=== PATIENT | male | born 1970 | race Caucasian/White ===

== ENCOUNTER 2017-04-04 17:14 | Inpatient (IN) | payer OTHER ==
[~2017-04-04] VITALS: Ht 177.8 cm; Wt 103.0 kg
[~2017-04-04 17:14] MED LIST: ACETAMINOPHEN 325 MG TAB PO PRN; ATOR40TA16 PO; BISACODYL 10 MG SUPP RECTAL PRN; GLIP5TAB8 PO; JANU50TA8 PO; LACTULOSE SYRUP 20 GM/30 ML CUP PO PRN; LISI10TA3 PO; MAGNESIUM HYDROXIDE SUSP 30 ML CUP PO PRN; NALOXONE HCL 0.4 MG/ML AMP IV PRN; ONDANSETRON HCL 4 MG/2 ML VIAL IVP PRN; SENNOSIDES 8.6 MG TAB PO PRN; SODIUM CHLORIDE 0.9% FLUSH 10 ML FLUSH IV FLUSH PRN; ZOLPIDEM TARTRATE 5 MG TAB PO PRN
[2017-04-04] MEDS ORDERED: SODIUM CHLOR 0.9% 1000 ML INJ 1,000 ML IV SCH (18:00)
[2017-04-04] MEDS: PIPERACIL-TAZO 4.5 GM PREMIX 100 ML IV SCH ×2 (18:32→22:55)
[2017-04-04] MEDS: HYDROmorphone HCL PF 1 MG/ML VIAL IV PRN (18:42)
[2017-04-04] MEDS ORDERED: GLUCAGON 1 MG/ML VIAL OTHER PRN (19:15)
[2017-04-04] MEDS ORDERED: DEXTROSE 50% IN WATER 50 ML VIAL(D50) IV PRN (19:15)
[2017-04-04 20:00] VITALS: BP 138/75; PULSE 56; RESP 17; TEMP 97.5; O2SAT 96
--- NOTE | 2017-04-04 20:16 | RADRPT ---
EXAM DATE/TIME: 04/04/2017 19:39 [facility] COMPARISON: No previous studies available for comparison. INDICATIONS : Pain. Epigastric pain radiating to back MEDICAL HISTORY : Hypertension. Diabetes mellitus type 2. SURGICAL HISTORY : None. ENCOUNTER: Initial ACUITY: 1 day PAIN SCORE: 5/10 LOCATION: Upper abdomen TECHNIQUE: Multiplanar, multisequence magnetic resonance imaging of the abdomen was performed. High-resolution 3D dataset was utilized to reconstruct maximum-intensity projection (MIP) images. FINDINGS: INTRAHEPATIC BILE DUCTS: Within normal limits. No significant anatomical variant is present. EXTRAHEPATIC BILE DUCTS: The common bile duct measures 3 mm. No stone or filling defect is identified. GALLBLADDER: No stones, wall thickening, or pericholecystic fluid. LIVER: Normal size and signal intensity. 2 T2 hyperintense well-circumscribed lesions are identified in the liver located in segments 6 and 8. They measure 12.6 and 14.1 mm in size respectively. PANCREAS: The main pancreatic duct is normal in size. There is no significant anatomical variant. Signal inte nsity is within normal limits. No mass is visualized on this non-contrast exam. OTHER: The remaining visualized structures demonstrate no acute abnormality on this non-contrast exam. CONCLUSION: 1. No evidence of biliary obstructive disease, cholelithiasis or acute inflammatory changes. 2. T2 hyperintense hepatic lesions characteristic of cysts or hemangiomas. 3. Otherwise normal exam. Alexandro Key MD on April 04, 2017 at 20:08 Board Certified Radiologist. This report was verified electronically.
--- NOTE | 2017-04-04 20:18 | MB ---
cc: BRIANDA FISCHER M.D. DATE OF CONSULTATION 04/04/[address] Garcia REASON FOR CONSULTATION Abdominal pain, pancreatitis HISTORY OF PRESENT ILLNESS Mr. Disla is a very pleasant 47-year-old gentleman who came to the emergency room with complaints of pain in the epigastrium radiating to the back and right upper quadrant since . The patient had some back pain related to his sciatica in the past , felt to it could be related to that. The patient got worse, pain was mostly in the right upper quadrant and in the epigastrium coming and going, getting worse for the last couple of hours. He did have some nausea and some vomiting. He did have some chills and fever. Based on the above, he decided to come to the emergency room. He denies any weight loss, constipation, diarrhea, history of gallstones. Denies any weight loss, dysphagia, odynophagia. He does drink three to four beers a week. He used to drink heavy alcohol in the past but not recently. He does have diabetes and apparently that is under control. No new medication started recently. PAST MEDICAL HISTORY 1. High blood pressure 2. High cholesterol 3. Diabetes. PAST SURGICAL HISTORY Tooth extraction SOCIAL HISTORY Drinks beer as described, denies any smoking. ALLERGIES MORPHINE MEDICATIONS 1. Metformin 2. Lisinopril 3. Atorvastatin 4. Glipizide. REVIEW OF SYSTEMS He did have some fever and chills. No weight loss or weight gain. ENT: No alteration in baseline hearing or visual acuity PULMONARY: Denies any chest pain, shortness of breath. GASTROINTESTINAL: As above. GENITOURINARY: Denies dysuria, hematuria. HEMATOLOGIC: Denies any history of anemia or bleeding disorder. SKIN: No alteration in baseline skin lesion. NEUROLOGIC: No history of TIA or CVA kind of symptoms. PHYSICAL EXAMINATION GENERAL: On clinical exam, he is sitting comfortably in bed in no acute distress. VITAL SIGNS: Pulse is 71, respirations 16, blood pressure 155/74, saturation 98 HEENT: PERRLA. NECK: No JVD. No lymphadenopathy. CHEST: Clear to the patient and palpation. CARDIOVASCULAR: S1, S2. No murmur. ABDOMEN: Obese. Bowel sounds are present. INFORMATICA DEVELOPER: Awake, alert, oriented x3. No focal signs identified. LABORATORY DATA White count 13.8, hemoglobin 15.9, platelets 269. Chemistry suggestive of bilirubin 1.5, AST, ALT normal. Lipase 706. IMAGING STUDIES The patient had a CT abdomen and pelvis which was essentially negative. IMPRESSION Abdominal pain, nausea, mild elevation of the total bilirubin and lipase. Possible passed gallstone or CBD stone versus peptic ulcer disease. RECOMMENDATIONS Repeat liver enzymes in the morning. MRCP. HIDA scan. Further recommendation will depend on the patient's clinical status and the above results. If any indication of common bile duct stone, the patient would benefit from ERCP. Continue current medication. I would like to thank, Dr. Garcia, for referring him to our office for consultation. Brianda Fischer MD BSB/SA /7:35 PM /7:58 PM MG
[2017-04-04] MEDS: ATORVASTATIN 40 MG TAB PO SCH (21:00)
[2017-04-04] MEDS: SODIUM CHLORIDE 0.9% FLUSH 10 ML FLUSH IV FLUSH SCH (21:00)
[2017-04-04] MEDS: INSULIN ASPART SUPPLEMENTAL SCALE SQ SCH (21:00)
[2017-04-04] MEDS: DOCUSATE SODIUM 50 MG/SENNA 8.6 MG TAB PO SCH (21:00)
--- NOTE | 2017-04-04 23:48 | HHI.HP ---
[facility] Service [facility] Primary Care Physician Unknown Admission Diagnosis Pancreatitis . Diagnoses: (1) Pancreatitis (2) Type 2 diabetes mellitus (3) Hypertension (4) Hyperlipidemia Chief Complaint: Back and epigastric pain Travel History International Travel<30 Days: No Contact w/Intl Traveler <30 Da: No History of Present Illness The patient is seen in the presence of his and interviewed in her presence with the patient's permission. The patient is a 47 y/o male with a history of upper lipidemia, hypertension, and type 2 diabetes mellitus who presented to the emergency room and [place] complaining of epigastric pain and back pain since 04/02/2017. The patient states that on March, he was experiencing severe right upper quadrant back pain that he related to nerve impingement. He states he's had pains like these before and they last for about a week before spontaneously resolving. He had a submarine sandwich and, suddenly, the pain from his back started radiating in a bandlike distribution around to the epigastrium. The pain was severe and difficult to describe. He was able to alleviate the pain temporarily with a heating pad in the right upper quadrant of his back while sitting in a lounge chair. However, as soon as he would lay down, the pain in the back and radiating around to the epigastrium would return. The pain was so severe that he decided to seek medical attention. He had some associated nausea this morning without vomiting and intermittent diaphoresis. He denies any associated shortness of breath or diarrhea. He denies any associated fever, chills, shortness of breath, chest pain, nausea, vomiting, diarrhea, hematuria, dysuria, or bloody or black stools. He states that he was started on glipizide about 90 days ago. That is the only new medication he has started. Review of Systems Except as stated in HPI: all other systems reviewed are Neg Past Family Social History Past Medical History Hyperlipidemia Type 2 diabetes mellitus Neuropathic back pain, intermittent Renal failure secondary to dehydration, resolved Denies hypertension, CAD, CHF, atrial fibrillation, COPD, emphysema, asthma, liver disease, hepatitis, cancers, thyroid disease, seizures, DVTs, PEs, or CVAs , . Past Surgical History Oral surgery for tooth extraction . Reported Medications Last Impressions Cholangiopancreatography MRI 04/04/17 0000 Signed Impressions: Service Date/Time: Tuesday, April 04, 2017 19:39 - CONCLUSION: 1. No evidence of biliary obstructive disease, cholelithiasis or acute inflammatory changes. 2. T2 hyperintense hepatic lesions characteristic of cysts or hemangiomas. 3. Otherwise normal exam. Alexandro Key MD . Allergies: Coded Allergies: morphine (Verified Allergy, Severe, Respiratory Failure, 04/04/17) Active Ordered Medications Current Medications Sodium Chloride 1,000 ml @ 100 mls/hr Q10H IV Last administered on 04/04/17t 18 :00; Start 04/04/17 at 18:00; Stop 04/05/17 at 00:32; Status DC Sodium Chloride (NS Flush) 2 ml UNSCH PRN IV FLUSH FLUSH AFTER USING IV ACCESS ; Start 04/04/17 at 13:45 Sodium Chloride (NS Flush) 2 ml BID IV FLUSH ; Start 04/04/17 at 21:00 Acetaminophen (Tylenol) 650 mg Q4H PRN PO TEMP > 100.4; Start 04/04/17 at 13:45 Ondansetron HCl (Zofran Inj) 4 mg Q6H PRN IVP NAUSEA OR VOMITING; Start at 13:45 Zolpidem Tartrate (Ambien) 5 mg HS PRN PO INSOMNIA; Start 04/04/17 at 13:45 Naloxone HCl (Narcan Inj) 0.4 mg UNSCH PRN IV SEE LABEL COMMENTS; Start at 13:45 Senna/Docusate Sodium (Pamela-Colace) 1 tab BID PO ; Start 04/04/17 at 21:00 Magnesium Hydroxide (Milk Of Magnesia Liq) 30 ml Q12H PRN PO MILD - MODERATE CONSTIPATION; Start 04/04/17 at 13:45 Sennosides (Senokot) 17.2 mg Q12H PRN PO MODERATE - SEVERE CONSTIPATION; Start 04/04/17 at 13:45 Bisacodyl (Dulcolax Supp) 10 mg DAILY PRN RECTAL SEVERE CONSITIPATION; Start at 13:45 Lactulose (Lactulose Liq) 30 ml DAILY PRN PO SEVERE CONSITIPATION; Start at 13:45 Piperacillin Sod/ Tazobactam Sod 100 ml @ 200 mls/hr Q6H IV Last administered on 04/04/17t 22:55; Start 04/04/17 at 18:00 Hydromorphone HCl (Dilaudid Pf Inj) 1 mg Q3H PRN IV PAIN SCALE 1 TO 10 Last administered on 04/05/17 00:08; Start 04/04/17 at 13:45 Dextrose (D50w (Vial) Inj) 50 ml UNSCH PRN IV HYPOGLYCEMIA-SEE COMMENTS; Start 04/04/17 at 19:15 Glucagon (Glucagon Inj) 1 mg UNSCH PRN OTHER HYPOGLYCEMIA-SEE COMMENTS; Start 04/04/17 at 19:15 Insulin Aspart (NovoLOG SUPPLEMENTAL SCALE) 1 ACHS SLIDING SCALE SQ ; Start 04/04/17 at 21:00 Atorvastatin Calcium (Lipitor) 40 mg HS PO ; Start 04/04/17 at 21:00 Lisinopril (Prinivil) 10 mg DAILY PO ; Start 04/05/17 at 09:00 Nicotine (Habitrol 7 Mg Patch.24 Hr) 1 patch DAILY T-DERMAL ; Start 04/05/17 at 09:00 Miscellaneous Information 1 DAILY T-DERMAL ; Start 04/05/17 at 09:00 Dextrose/Sodium Chloride 1,000 ml @ 100 mls/hr Q10H IV ; Start 04/05/17 at 00: 30 . Family History Father age 67; pulmonary fibrosis, COPD, hypertension, hyperlipidemia, Type 2 DM, coronary artery disease - stents placed age 60 Mother alive and with diabetes mellitus and thyroid disease . Social History Tobacco: Chews tobacco, quit smoking about 10 years ago, smoked for 20 years about 1 pack per day Alcohol: Former heavy alcohol use; now just drinks 4-5 beers per week at most . Physical Exam Vital Signs Vital Signs Date Time Temp Pulse Resp B/P (MAP) Pulse Ox O2 Delivery O2 Flow Rate FiO2 04/04/17 20:00 97.5 56 17 138/75 (96) 96 Physical Exam GENERAL: This is a pleasant male patient, in no apparent distress. SKIN: No rashes, ecchymoses or lesions. Cool and dry. HEAD: Atraumatic. Normocephalic. EYES: No scleral icterus. No injection or drainage. ENT: Nose without bleeding, purulent drainage. NECK: Trachea midline. No JVD. CARDIOVASCULAR: Regular rate and rhythm without murmurs, gallops, or rubs. RESPIRATORY: Clear to auscultation. Breath sounds equal bilaterally. No wheezes , rales, or rhonchi. GASTROINTESTINAL: Abdomen soft, epigastric pain with palpation, nondistended. No guarding. MUSCULOSKELETAL: Extremities without clubbing, cyanosis, or edema. No calf tenderness. Right paraspinal muscle tenderness with palpation in the area of around T3/T4. NEUROLOGICAL: Awake and alert. Motor and sensory grossly within normal limits. Normal speech. . Laboratory Laboratory Tests Test 04/04/17 11:26 White Blood Count 13.8 TH/MM3 Red Blood Count 5.11 MIL/MM3 Hemoglobin 15.9 GM/DL Hematocrit 45.7 % Mean Corpuscular Volume 89.4 FL Mean Corpuscular Hemoglobin 31.1 PG Mean Corpuscular Hemoglobin Concent 34.8 % Red Cell Distribution Width 12.1 % Platelet Count 269 TH/MM3 Mean Platelet Volume 10.1 FL Neutrophils (%) (Auto) 61.3 % Lymphocytes (%) (Auto) 26.4 % Monocytes (%) (Auto) 11.1 % Eosinophils (%) (Auto) 0.7 % Basophils (%) (Auto) 0.2 % Neutrophils # (Auto) 8.5 TH/MM3 Lymphocytes # (Auto) 3.6 TH/MM3 Monocytes # (Auto) 1.5 TH/MM3 Eosinophils # (Auto) 0.1 TH/MM3 Basophils # (Auto) 0.0 TH/MM3 CBC Comment DIFF FINAL Differential Comment Prothrombin Time 10.0 SEC Prothromb Time International Ratio 1.0 RATIO Activated Partial Thromboplast Time 27.6 SEC Blood Urea Nitrogen 11 MG/DL Creatinine 1.00 MG/DL Random Glucose 192 MG/DL Total Protein 7.5 GM/DL Albumin 3.9 GM/DL Calcium Level 9.3 MG/DL Alkaline Phosphatase 104 U/L Aspartate Amino Transf (AST/SGOT) 17 U/L Alanine Aminotransferase (ALT/SGPT) 36 U/L Total Bilirubin 1.5 MG/DL Sodium Level 136 MEQ/L Potassium Level 4.4 MEQ/L Chloride Level 101 MEQ/L Carbon Dioxide Level 25.0 MEQ/L Anion Gap 10 MEQ/L Estimat Glomerular Filtration Rate 79 ML/MIN Troponin I LESS THAN 0.02 NG/ML Lipase 706 U/L Imaging Last Impressions Abdomen/Pelvis CT 04/04/17 0000 Signed Impressions: Service Date/Time: Tuesday, April 04, 2017 11:50 - CONCLUSION: No acute finding is identified. There is no abnormality identified to explain the clinical symptoms. Jhonny Gutierrez MD Cholangiopancreatography MRI 04/04/17 0000 Signed Impressions: Service Date/Time: Tuesday, April 04, 2017 19:39 - CONCLUSION: 1. No evidence of biliary obstructive disease, cholelithiasis or acute inflammatory changes. 2. T2 hyperintense hepatic lesions characteristic of cysts or hemangiomas. 3. Otherwise normal exam. MD Saira Montes De Oca VTE Risk Assessment Saira VTE Risk Assessment: Mod/High Risk (score >= 2) Caprini Risk Assessment Model Point Value = 1 Point Value = 2 Point Value = 3 Point Value = 5 Age 41-60 Minor surgery BMI > 25 kg/m2 Swollen legs Varicose veins or History of unexplained or recurrent spontaneous Oral contraceptives or hormone replacement Sepsis (< 1 month) Serious lung disease, including pneumonia (< 1 month) Abnormal pulmonary function Acute myocardial infarction Congestive heart failure (< 1 month) History of inflammatory bowel disease Medical patient at bed rest Age 61-74 Arthroscopic surgery Major open surgery (> 45 min) Laparoscopic surgery (> 45 min) Malignancy Confined to bed (> 72 hours) Immobilizing plaster cast Central venous access Age >= 75 History of VTE Family history of VTE Factor V Leiden Prothrombin [id number] Lupus anticoagulant Anticardiolipin antibodies Elevated serum homocysteine Heparin-induced thrombocytopenia Other congenital or acquired thrombophilia Stroke (< 1 month) Elective arthroplasty Hip, pelvis, or leg fracture Acute spinal cord injury (< 1 month) Prophylaxis Regimen Total Risk Factor Score Risk Level Prophylaxis Regimen 0-1 Low Early ambulation 2 Moderate Order ONE of the following: *Sequential Compression Device (SCD) *Heparin 5000 units SQ BID 3-4 Higher Order ONE of the following medications: *Heparin 5000 units SQ TID *Enoxaparin/Lovenox 40 mg SQ daily (WT < 150 kg, CrCl > 30 mL/min) *Enoxaparin/Lovenox 30 mg SQ daily (WT < 150 kg, CrCl > 10-29 mL/min) *Enoxaparin/Lovenox 30 mg SQ BID (WT < 150 kg, CrCl > 30 mL/min) AND/OR *Sequential Compression Device (SCD) 5 or more Highest Order ONE of the following medications: *Heparin 5000 units SQ TID (Preferred with Epidurals) *Enoxaparin/Lovenox 40 mg SQ daily (WT < 150 kg, CrCl > 30 mL/min) *Enoxaparin/Lovenox 30 mg SQ daily (WT < 150 kg, CrCl > 10-29 mL/min) *Enoxaparin/Lovenox 30 mg SQ BID (WT < 150 kg, CrCl > 30 mL/min) AND *Sequential Compression Device (SCD) Assessment and Plan Problem List: (1) Pancreatitis ICD Code: K85.90 - Acute pancreatitis without necrosis or infection, unspecified (2) Type 2 diabetes mellitus ICD Code: E11.9 - Type 2 diabetes mellitus without complications Status: Chronic (3) Hyperlipidemia ICD Code: E78.5 - Hyperlipidemia, unspecified Status: Chronic Assessment and Plan 47 y/o male with a history of upper lipidemia, hypertension, and type 2 diabetes mellitus who presented to the emergency room and [place] complaining of epigastric pain and back pain since 04/02/2017. Pancreatitis - medication related vs choledocholithiasis vs autoimmune - GI consulted; appreciate the assistance of Dr. Vito BASS pendsamm - D5NS IVF hydration at 100 cc/hr - Hold oral diabetes medications - Analgesics: Dilaudid 1 mg IV q3h PRN - Leukocytosis with WBC 13.8 - Antibiotics: Zosyn 4.5 gms IV q6h - Lipase 706 - repeat lipase in a.m. Back pain with musculoskeletal component - K-thermia - Robaxin 750 mg q8h PRN back pain Type 2 Diabetes Mellitus - Hold Glipizide and Janumet - Accu-Cheks before meals and at bedtime with low-dose NovoLog sliding scale coverage - Hypoglycemia protocol - Monitor trends and blood glucose readings and adjust treatments as indicated - continue home Lisinopril for renal protection Hyperlipidemia - continue home atorvastatin Tobacco abuse - chews tobacco - nicotine patch ordered DVT prophylaxis - SCDs . Discussed Condition With Dr. Mckeon, patient, and patient's . Physician Certification 2 Midnight Certification Type: Admission for Inpatient Services Order for Inpatient Services The services are ordered in accordance with Medicare regulations or non- Medicare payer requirements, as applicable. In the case of services not specified as inpatient-only, they are appropriately provided as inpatient services in accordance with the 2-midnight benchmark. Estimated LOS (days): 3 days is the estimated time the patient will need to remain in the hospital, assuming treatment plan goals are met and no additional complications. Post-Hospital Plan: Not yet determined Kourtney Castellanos Apr 04, 2017 23:48
[2017-04-05] VITALS: BP 124/71; PULSE 60; RESP 17; TEMP 97; O2SAT 97
[2017-04-05] MEDS: HYDROmorphone HCL PF 1 MG/ML VIAL IV PRN ×5 (00:08→21:35)
[2017-04-05] MEDS: DEXT 5%-NACL 0.9% 1000 ML INJ 1,000 ML IV SCH ×3 (01:05→20:29)
[2017-04-05] MEDS: PIPERACIL-TAZO 4.5 GM PREMIX 100 ML IV SCH ×4 (04:53→21:36)
[2017-04-05] MEDS: INSULIN ASPART SUPPLEMENTAL SCALE SQ SCH ×4 (05:26→20:31)
[2017-04-05 07:25] LABS: AUTOMATED NEUTROPHIL # 7.1 TH/MM3 (1.8-7.7); BASOPHIL % 0.3 % (0.0-2.0); EOSINOPHIL # 0.2 TH/MM3 (0-0.4); EOSINOPHIL % 1.8 % (0.0-4.0); HEMATOCRIT 42.2 % (39.0-51.0); HEMO FLAGS DIFF FINAL; LYMPH % 16.3 % (9.0-44.0); LYMPHOCYTE # 1.7 TH/MM3 (1.0-4.8); MEAN CELL VOLUME 91.8 FL (80.0-100.0); MEAN CORPUSCULAR HEMOGLOBIN 31.3 PG (27.0-34.0); MEAN CORPUSCULAR HGB CONC 34.1 % (32.0-36.0); MONO % 13.5 % (0.0-8.0); NEUT % 68.1 % (16.0-70.0); PLATELET COUNT 218 TH/MM3 (150-450); RED CELL DISTRIBUTION WIDTH 13.3 % (11.6-17.2); WHITE BLOOD COUNT 10.4 TH/MM3 (4.0-11.0)
[2017-04-05 07:53] LABS: TOTAL BILIRUBIN ADULT 2.3 MG/DL (0.2-1.0)
[2017-04-05 08:00] VITALS: BP 132/79; PULSE 59; RESP 18; TEMP 97; O2SAT 97
[2017-04-05] MEDS: DOCUSATE SODIUM 50 MG/SENNA 8.6 MG TAB PO SCH ×2 (08:10→20:30)
[2017-04-05] MEDS: NICOTINE 7 MG/24 HR PATCH T-DERMAL SCH ×2 (08:11→08:21)
[2017-04-05] MEDS: LISINOPRIL 10 MG TAB PO SCH (08:12)
[2017-04-05] MEDS: REMOVE OLD PATCH T-DERMAL SCH (08:22)
[2017-04-05] MEDS: SODIUM CHLORIDE 0.9% FLUSH 10 ML FLUSH IV FLUSH SCH ×2 (10:08→20:29)
[2017-04-05 11:03] VITALS: O2SAT 97
--- NOTE | 2017-04-05 11:57 | RADRPT ---
EXAM DATE/TIME: 04/05/2017 10:58 [facility] COMPARISON: MRCP W/O CONTRAST, April 04, 2017, 19:39. CT ABDOMEN & PELVIS W CONTRAST, April 04, 2017, 11 :50. INDICATIONS : Abdominal pain for 2 days. DOSE: 4.1 mCi Tc99m Mebrofenin IV MEDICAL HISTORY : Hypertension. Diabetes mellitus type 2. SURGICAL HISTORY : None. ENCOUNTER: Initial ACUITY: 2 days PAIN SCALE: 3/10 LOCATION: Right upper quadrant TECHNIQUE: Following the intravenous administration of radiotracer, dynamic sequential images were performed wit h continuous acquisition. FINDINGS: HEPATIC KINETICS: There is prompt uptake of radiotracer in the liver. No focal defects are seen. There is normal rate of washout from the hepatic parenchyma. BILIARY CLEARANCE: Activity is first seen in the extrahepatic biliary system at 10 minutes. There is normal excretion i nto the small bowel. GALLBLADDER: Activity is first seen in the gallbladder at 15 minutes. Common bile duct kinetics are normal and th ere is no evidence of biliary obstruction. BILIARY ENTRIC REFLUX: None observed. CONCLUSION: Examination is within normal limits. There is no cystic duct obstruction. Jhonny Gutierrez MD on April 05, 2017 at 11:55 Board Certified Radiologist. This report was verified electronically.
[2017-04-05 12:00] VITALS: BP 130/86; PULSE 68; RESP 17; TEMP 97.3; O2SAT 96
[2017-04-05 16:00] VITALS: BP 141/83; PULSE 70; RESP 16; TEMP 96.2; O2SAT 98
--- NOTE | 2017-04-05 16:00 | HHI.PR ---
Subjective Remarks In the chair, appears in nad. at bedside. The patient says he has upper abdominal pain, radiating to the back. No n/v/d/c. No fever or chills. Says he ios hungry, diet advanced per GI specialist, Seen by Dr Padron. plan for EGD tomorrow AM Objective Vitals Vital Signs Date Time Temp Pulse Resp B/P (MAP) Pulse Ox O2 Delivery O2 Flow Rate FiO2 04/05/17 12:00 97.3 68 17 130/86 (101) 96 04/05/17 11:03 97 Nasal Cannula 2.00 04/05/17 08:00 97.0 59 18 132/79 (96) 97 04/05/17 00:00 97.0 60 17 124/71 (88) 97 04/04/17 20:00 97.5 56 17 138/75 (96) 96 I/O 04/04/17 04/04/17 04/04/17 04/05/17 04/05/17 04/05/17 06:59 14:59 22:59 06:59 14:59 22:59 Intake Total 0 ml 700 ml Balance 0 ml 700 ml Intake Oral 0 ml 0 ml IV Total 700 ml # Voids 1 1 Result Diagram: 04/05/17 0629 Imaging Last Impressions Hepatobiliary Scan Nuclear Medicine 04/05/17 0000 Signed Impressions: Service Date/Time: Wednesday, April 05, 2017 10:58 - CONCLUSION: Examination is within normal limits. There is no cystic duct obstruction. Jhonny Gutierrez MD Cholangiopancreatography MRI 04/04/17 0000 Signed Impressions: Service Date/Time: Tuesday, April 04, 2017 19:39 - CONCLUSION: 1. No evidence of biliary obstructive disease, cholelithiasis or acute inflammatory changes. 2. T2 hyperintense hepatic lesions characteristic of cysts or hemangiomas. 3. Otherwise normal exam. Alexandro Key MD Objective Remarks GENERAL: This is a pleasant male patient, in no apparent distress. CARDIOVASCULAR: Regular rate and rhythm without murmurs, gallops, or rubs. RESPIRATORY: Clear to auscultation. Breath sounds equal bilaterally. No wheezes , rales, or rhonchi. GASTROINTESTINAL: Abdomen soft, epigastric pain with palpation, nondistended. No guarding. MUSCULOSKELETAL: Extremities without clubbing, cyanosis, or edema. No calf tenderness. Right paraspinal muscle tenderness with palpation in the area of around T3/T4. NEUROLOGICAL: Awake and alert. Motor and sensory grossly within normal limits. Normal speech. A/P Problem List: (1) Pancreatitis ICD Code: K85.90 - Acute pancreatitis without necrosis or infection, unspecified (2) Type 2 diabetes mellitus ICD Code: E11.9 - Type 2 diabetes mellitus without complications Status: Chronic (3) Hyperlipidemia ICD Code: E78.5 - Hyperlipidemia, unspecified Status: Chronic Assessment and Plan 47 y/o male with a history of upper lipidemia, hypertension, and type 2 diabetes mellitus who presented to the emergency room and [place] complaining of epigastric pain and back pain since 04/02/2017. Pancreatitis - medication related vs choledocholithiasis vs autoimmune - GI consulted; appreciate the assistance of Dr. Vito BASS necative MRCP negative. Plan for EGD tomorrow morning - D5NS IVF hydration at 100 cc/hr - Hold oral diabetes medications. Accuchecks and ISS - Analgesics: Dilaudid 1 mg IV q3h PRN - Leukocytosis with WBC 13.8 - Antibiotics: Zosyn 4.5 gms IV q6h - Lipase 706 - repeat lipase in a.m. Back pain with musculoskeletal component - K-thermia - Robaxin 750 mg q8h PRN back pain Type 2 Diabetes Mellitus - Hold Glipizide and Janumet - Accu-Cheks before meals and at bedtime with low-dose NovoLog sliding scale coverage - Hypoglycemia protocol - Monitor trends and blood glucose readings and adjust treatments as indicated - continue home Lisinopril for renal protection Hyperlipidemia - continue home atorvastatin Tobacco abuse - chews tobacco - nicotine patch ordered DVT prophylaxis - SCDs . Discussed Condition With patient, nurse, Manjula Graves MD Apr 05, 2017 16:00
--- NOTE | 2017-04-05 16:51 | HHI.GIFU ---
GI Follow-up Note Consult Follow-up Subjective: Patient laying in bed comfortably, hungry.Still pain that comes and goes .No nausea, vomiting . HIDA, MRCP negative so far for biliary pathology . Objective: PHYSICAL EXAMINATION: Vitals signs stable No fever Vital Signs Date Time Temp Pulse Resp B/P (MAP) Pulse Ox O2 Delivery O2 Flow Rate FiO2 04/05/17 16:00 96.2 70 16 141/83 (102) 98 04/05/17 12:00 97.3 68 17 130/86 (101) 96 04/05/17 11:03 97 Nasal Cannula 2.00 HEENT: Pupils round and reactive to light; normocephalic; atraumatic; no jaundice. Throat is clear. NECK: Neck is supple, no JVD, no lymphadenopathy. CHEST: Chest is clear to auscultation and percussion. CARDIAC: Regular rate and rhythm with no murmur gallop or rubs. ABDOMEN: Soft, nondistended, nontender; no hepatosplenomegaly; bowel sounds are present in all four quadrants. EXTREMITIES: No clubbing, cyanosis, or edema. SKIN: Normal; no rash; no jaundice. 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 Available Data (labs, X- Rays, Procedues) : Laboratory Tests Test 04/05/17 06:29 White Blood Count 10.4 TH/MM3 Red Blood Count 4.60 MIL/MM3 Hemoglobin 14.4 GM/DL Hematocrit 42.2 % Mean Corpuscular Volume 91.8 FL Mean Corpuscular Hemoglobin 31.3 PG Mean Corpuscular Hemoglobin Concent 34.1 % Red Cell Distribution Width 13.3 % Platelet Count 218 TH/MM3 Mean Platelet Volume 8.3 FL Neutrophils (%) (Auto) 68.1 % Lymphocytes (%) (Auto) 16.3 % Monocytes (%) (Auto) 13.5 % Eosinophils (%) (Auto) 1.8 % Basophils (%) (Auto) 0.3 % Neutrophils # (Auto) 7.1 TH/MM3 Lymphocytes # (Auto) 1.7 TH/MM3 Monocytes # (Auto) 1.4 TH/MM3 Eosinophils # (Auto) 0.2 TH/MM3 Basophils # (Auto) 0.0 TH/MM3 CBC Comment DIFF FINAL Differential Comment Total Bilirubin 2.3 MG/DL Direct Bilirubin 0.3 MG/DL Indirect Bilirubin 2.0 MG/DL Aspartate Amino Transf (AST/SGOT) 10 U/L Alanine Aminotransferase (ALT/SGPT) 28 U/L Alkaline Phosphatase 91 U/L C-Reactive Protein 2.24 MG/DL Total Protein 6.6 GM/DL Albumin 3.3 GM/DL Triglycerides Level 91 MG/DL Lipase 595 U/L ASSESSMENT/PLAN: pain in ruq, epigastrium, mild elevation of lipase-no indication of cbd stone mild elevation of indirect bilirubin-possible Gilbert's vs mild hemolysis ? Recommendations advance diet -low fat egd in am trial of bentyl 10 mg po tid if not better consider gastric emptying/sphincter of Oddi manometry ? It was a pleasure seeing Chema Disla. Thank you for this consult. Entered by: Brianda Guzman MD Apr 05, 2017 16:51
[2017-04-05 20:09] VITALS: BP 159/86; PULSE 71; RESP 18; TEMP 97.8; O2SAT 98
[2017-04-05] MEDS: ATORVASTATIN 40 MG TAB PO SCH (20:29)
[2017-04-05 21:17] LABS: LDH SERUM 123 U/L (87-241)
[2017-04-05 21:19] LABS: FERRITIN 199 NG/ML (26-388)
[2017-04-06] VITALS (7 sets, daily range): BP systolic 110–129; BP diastolic 65–83; PULSE 58–74; RESP 17–19; TEMP 96.5–97.9; O2SAT 95–98
[2017-04-06] MEDS: HYDROmorphone HCL PF 1 MG/ML VIAL IV PRN ×4 (05:01→15:13)
[2017-04-06] MEDS: PIPERACIL-TAZO 4.5 GM PREMIX 100 ML IV SCH ×4 (05:02→23:44)
[2017-04-06] MEDS: DEXT 5%-NACL 0.9% 1000 ML INJ 1,000 ML IV SCH (05:03)
[2017-04-06] MEDS: INSULIN ASPART SUPPLEMENTAL SCALE SQ SCH ×4 (05:30→19:42)
[2017-04-06 06:14] LABS: INDIRECT BILIRUBIN 0.9 MG/DL (0.0-0.8); TOTAL BILIRUBIN ADULT 1.2 MG/DL (0.2-1.0)
[2017-04-06] MEDS: REMOVE OLD PATCH T-DERMAL SCH (08:22)
[2017-04-06] MEDS: NICOTINE 7 MG/24 HR PATCH T-DERMAL SCH (08:23)
[2017-04-06] MEDS: SODIUM CHLORIDE 0.9% FLUSH 10 ML FLUSH IV FLUSH SCH ×2 (08:24→19:39)
[2017-04-06] MEDS: DOCUSATE SODIUM 50 MG/SENNA 8.6 MG TAB PO SCH ×2 (08:24→19:38)
[2017-04-06] MEDS: LISINOPRIL 10 MG TAB PO SCH (08:24)
--- NOTE | 2017-04-06 10:08 | HHI.PR ---
Subjective Remarks Patient is ready to go for EGD. Says he was able to eat last night. Had pain 2 hrs after he ate and required pain meds. Pain is located upper abdomen, bilateral quadrants, radiating to the back. moderate in intensity. Denies associated nausea or vomiting. No fever or chills. Objective Vitals Vital Signs Date Time Temp Pulse Resp B/P (MAP) Pulse Ox O2 Delivery O2 Flow Rate FiO2 04/06/17 08:43 97.4 68 19 125/74 (91) 98 04/06/17 06:13 96 Nasal Cannula 2.00 04/06/17 00:09 97.0 70 18 115/65 (82) 95 04/05/17 20:09 97.8 71 18 159/86 (110) 98 04/05/17 16:00 96.2 70 16 141/83 (102) 98 04/05/17 12:00 97.3 68 17 130/86 (101) 96 04/05/17 11:03 97 Nasal Cannula 2.00 I/O 04/05/17 04/05/17 04/05/17 04/06/17 04/06/17 04/06/17 07:00 15:00 23:00 07:00 15:00 23:00 Intake Total 700 ml 1000 ml 480 ml Balance 700 ml 1000 ml 480 ml Intake Oral 0 ml 480 ml IV Total 700 ml 1000 ml # Voids 1 7 1 # Bowel Movements 0 Result Diagram: 04/05/17 0629 Imaging Last Impressions Hepatobiliary Scan Nuclear Medicine 04/05/17 0000 Signed Impressions: Service Date/Time: Wednesday, April 05, 2017 10:58 - CONCLUSION: Examination is within normal limits. There is no cystic duct obstruction. Jhonny Gutierrez MD Cholangiopancreatography MRI 04/04/17 0000 Signed Impressions: Service Date/Time: Tuesday, April 04, 2017 19:39 - CONCLUSION: 1. No evidence of biliary obstructive disease, cholelithiasis or acute inflammatory changes. 2. T2 hyperintense hepatic lesions characteristic of cysts or hemangiomas. 3. Otherwise normal exam. Alexandro Key MD Objective Remarks GENERAL: This is a pleasant male patient, in no apparent distress. CARDIOVASCULAR: Regular rate and rhythm without murmurs, gallops, or rubs. RESPIRATORY: Clear to auscultation. Breath sounds equal bilaterally. No wheezes , rales, or rhonchi. GASTROINTESTINAL: Abdomen soft, epigastric pain with palpation, nondistended. No guarding. MUSCULOSKELETAL: Extremities without clubbing, cyanosis, or edema. No calf tenderness. Right paraspinal muscle tenderness with palpation in the area of around T3/T4. NEUROLOGICAL: Awake and alert. Motor and sensory grossly within normal limits. Normal speech. A/P Problem List: (1) Pancreatitis ICD Code: K85.90 - Acute pancreatitis without necrosis or infection, unspecified (2) Type 2 diabetes mellitus ICD Code: E11.9 - Type 2 diabetes mellitus without complications Status: Chronic (3) Hyperlipidemia ICD Code: E78.5 - Hyperlipidemia, unspecified Status: Chronic Assessment and Plan 47 y/o male with a history of upper lipidemia, hypertension, and type 2 diabetes mellitus who presented to the emergency room and [place] complaining of epigastric pain and back pain since 04/02/2017. Pancreatitis - medication related vs choledocholithiasis vs autoimmune - GI consulted; appreciate the assistance of Dr. Vito BASS necative MRCP negative. Plan for EGD - D5NS IVF hydration at 100 cc/hr - Hold oral diabetes medications. Accuchecks and ISS - Analgesics: Dilaudid 1 mg IV q3h PRN - Leukocytosis with WBC 13.8 on admission - Antibiotics: Zosyn 4.5 gms IV q6h - Lipase 706 on admission - repeat lipase in a.m. Back pain with musculoskeletal component - K-thermia - Robaxin 750 mg q8h PRN back pain Type 2 Diabetes Mellitus - Hold Glipizide and Janumet - Accu-Cheks before meals and at bedtime with low-dose NovoLog sliding scale coverage - Hypoglycemia protocol - Monitor trends and blood glucose readings and adjust treatments as indicated - continue home Lisinopril for renal protection Hyperlipidemia - continue home atorvastatin Tobacco abuse - chews tobacco - nicotine patch ordered DVT prophylaxis - SCDs . Discussed Condition With patient, nurse, Manjula Graves MD Apr 06, 2017 10:08
[2017-04-06] MEDS ORDERED: PROPOFOL 200 MG/20 ML AMP ONE (11:08)
[2017-04-06] MEDS ORDERED: PROPOFOL 200 MG/20 ML AMP IV ONE (11:21)
--- NOTE | 2017-04-06 11:28 | GIPROC ---
[facility] [address] [facility]. [facility], [address] EGD PROCEDURE REPORT EXAM DATE: 04/06/2017 PATIENT NAME: Chema Disla MR #: [id number] BIRTHDATE: 1970 ATTENDING: Kylie Cobos MD ORDER #: [id number] [employer] COACH: Reji Ward and Leon Stiles STATUS: inpatient INDICATIONS: The patient is a 47 yr old male here for an EGD due to abdominal pain in the right upper quadrant PROCEDURE PERFORMED: EGD w/ biopsy MEDICATIONS: None and Per Anesthesia. TOPICAL ANESTHETIC: CONSENT: The patient understands the risks and benefits of the procedure and understands that these risks include, but are not limited to: sedation, allergic reaction, infection, perforation and/or bleeding. Alternative means of evaluation and treatment include, among others: physical exam, x-rays, and/or surgical intervention. The patient elects to proceed with this endoscopic procedure. medical equipment was checked for proper function. Hand hygiene and appropriate measures for infection prevention was taken. After the risks, benefits and alternatives of the procedure were thoroughly explained, Informed consent was verified, confirmed and timeout was successfully executed by the treatment team. The patient was anesthetized with topical anesthesia and the Pentax [id number] endoscope was introduced through the mouth and advanced to the second portion of the duodenum. Retroflexed views revealed no abnormalities The gastroscope was then slowly withdrawn and removed. ESOPHAGUS: There was LA Class A esophagitis noted. A biopsy was performed using cold forceps. Sample sent for histology. STOMACH: There was erythematous severe gastritis in the gastric antrum. A biopsy was performed using cold forceps. Sample sent for histology. DUODENUM: Moderate duodenal inflammation was found in the bulb and second portion of the duodenum. ADVERSE EVENTS: There were no complications. IMPRESSIONS: 1. There was LA Class A esophagitis noted; biopsy was performed 2. There was erythematous gastritis in the gastric antrum; biopsy was performed 3. Duodenal inflammation was found in the bulb and second portion of the duodenum 4. Retroflexed views revealed no abnormalities RECOMMENDATIONS: 1. Anti-reflux regimen 2. Continue PPI 3. Avoid NSAIDS PATIENT CONDITION: stable DISPOSITION: Inpatient REPEAT EXAM: Return 1 year EGD pending biopsy results Kylie Cobos MD eSigned: Kylie Cobos MD 04/06/2017 11:28 AM cc: PATIENT NAME: Chema Disla Jenny MR#: [id number]
[2017-04-06] MEDS ORDERED: DO NOT ADM ANY ANTICOAGULANT DRUGS PRN (12:15)
[2017-04-06] MEDS: PANTOPRAZOLE SOD 40 MG DELAYED RELEASE TAB PO SCH ×2 (12:35→19:38)
[2017-04-06] MEDS ORDERED: ACETAMINOPHEN/HYDROcodone 325 MG/5 MG TAB PO PRN (16:15)
[2017-04-06] MEDS ORDERED: HYDROmorphone HCL PF 1 MG/ML VIAL IV PRN (16:15)
[2017-04-06] MEDS: ACETAMINOPHEN/HYDROcodone 325 MG/10 MG TAB PO PRN ×2 (17:05→21:27)
[2017-04-06] MEDS: ATORVASTATIN 40 MG TAB PO SCH (19:38)
[2017-04-07 00:37] VITALS: BP 124/70; PULSE 57; RESP 18; TEMP 96.8; O2SAT 95
[2017-04-07] MEDS: ACETAMINOPHEN/HYDROcodone 325 MG/10 MG TAB PO PRN (03:22)
[2017-04-07 04:09] VITALS: BP 122/79; PULSE 68; RESP 18; TEMP 97; O2SAT 98
[2017-04-07] MEDS: PIPERACIL-TAZO 4.5 GM PREMIX 100 ML IV SCH (05:31)
[2017-04-07] MEDS: INSULIN ASPART SUPPLEMENTAL SCALE SQ SCH ×2 (05:34→11:00)
[2017-04-07 08:00] VITALS: BP 135/87; PULSE 77; RESP 16; TEMP 97.3; O2SAT 96
[2017-04-07] MEDS ORDERED: DICYCLOMINE HCL 20 MG TAB PO SCH (09:00)
[2017-04-07] MEDS: NICOTINE 7 MG/24 HR PATCH T-DERMAL SCH ×2 (09:00→09:25)
[2017-04-07] MEDS: DOCUSATE SODIUM 50 MG/SENNA 8.6 MG TAB PO SCH (09:24)
[2017-04-07] MEDS: LISINOPRIL 10 MG TAB PO SCH (09:25)
[2017-04-07] MEDS: PANTOPRAZOLE SOD 40 MG DELAYED RELEASE TAB PO SCH (09:26)
[2017-04-07 10:10] VITALS: O2SAT 96
[2017-04-07] MEDS ORDERED: NOVOLOGP2 SQ (10:27)
[2017-04-07] MEDS ORDERED: INSU1MIS15 (10:27)
[2017-04-07] MEDS ORDERED: BIOM30MI (10:27)
[2017-04-07] MEDS ORDERED: DICY20TA10 PO (10:27)
--- NOTE | 2017-04-07 10:27 | HHI.DS ---
Discharge Summary Admission Date Apr 04, 2017 at 17:35 Discharge Date: Apr 07, 2017 Admitting Diagnosis Pancreatitis . (1) Pancreatitis ICD Code: K85.90 - Acute pancreatitis without necrosis or infection, unspecified (2) Type 2 diabetes mellitus ICD Code: E11.9 - Type 2 diabetes mellitus without complications Status: Chronic (3) Hyperlipidemia ICD Code: E78.5 - Hyperlipidemia, unspecified Status: Chronic (4) Gastritis ICD Code: K29.70 - Gastritis, unspecified, without bleeding (5) Tobacco consumption ICD Code: Z72.0 - Tobacco use (6) Hypertension ICD Code: I10 - Essential (primary) hypertension Status: Chronic Procedures EGD Brief History - From Admission The patient is seen in the presence of his and interviewed in her presence with the patient's permission. The patient is a 47 y/o male with a history of upper lipidemia, hypertension, and type 2 diabetes mellitus who presented to the emergency room and [place] complaining of epigastric pain and back pain since 04/02/2017. The patient states that on March, he was experiencing severe right upper quadrant back pain that he related to nerve impingement. He states he's had pains like these before and they last for about a week before spontaneously resolving. He had a submarine sandwich and, suddenly, the pain from his back started radiating in a bandlike distribution around to the epigastrium. The pain was severe and difficult to describe. He was able to alleviate the pain temporarily with a heating pad in the right upper quadrant of his back while sitting in a lounge chair. However, as soon as he would lay down, the pain in the back and radiating around to the epigastrium would return. The pain was so severe that he decided to seek medical attention. He had some associated nausea this morning without vomiting and intermittent diaphoresis. He denies any associated shortness of breath or diarrhea. He denies any associated fever, chills, shortness of breath, chest pain, nausea, vomiting, diarrhea, hematuria, dysuria, or bloody or black stools. He states that he was started on glipizide about 90 days ago. That is the only new medication he has started. CBC/BMP: 04/05/17 0629 Significant Findings Laboratory Tests Test 04/05/17 06:29 04/05/17 18:53 04/06/17 05:14 Monocytes (%) (Auto) 13.5 % (0.0-8.0) Monocytes # (Auto) 1.4 TH/MM3 (0-0.9) Total Bilirubin 2.3 MG/DL (0.2-1.0) 1.2 MG/DL (0.2-1.0) Direct Bilirubin 0.3 MG/DL (0.0-0.2) 0.3 MG/DL (0.0-0.2) Indirect Bilirubin 2.0 MG/DL (0.0-0.8) 0.9 MG/DL (0.0-0.8) Aspartate Amino Transf (AST/SGOT) 10 U/L (15-37) 11 U/L (15-37) C-Reactive Protein 2.24 MG/DL (0.00-0.30) Albumin 3.3 GM/DL (3.4-5.0) 3.1 GM/DL (3.4-5.0) Lipase 595 U/L (73-393) Haptoglobin 379 MG/DL (30-200) Iron Level 28 MCG/DL (65-175) Imaging Last Impressions Hepatobiliary Scan Nuclear Medicine 04/05/17 0000 Signed Impressions: Service Date/Time: Wednesday, April 05, 2017 10:58 - CONCLUSION: Examination is within normal limits. There is no cystic duct obstruction. Jhonny Gutierrez MD Cholangiopancreatography MRI 04/04/17 0000 Signed Impressions: Service Date/Time: Tuesday, April 04, 2017 19:39 - CONCLUSION: 1. No evidence of biliary obstructive disease, cholelithiasis or acute inflammatory changes. 2. T2 hyperintense hepatic lesions characteristic of cysts or hemangiomas. 3. Otherwise normal exam. Alexandro Key MD PE at Discharge GENERAL: This is a pleasant male patient, in no apparent distress. CARDIOVASCULAR: Regular rate and rhythm without murmurs, gallops, or rubs. RESPIRATORY: Clear to auscultation. Breath sounds equal bilaterally. No wheezes , rales, or rhonchi. GASTROINTESTINAL: Abdomen soft, epigastric pain with palpation, nondistended. No guarding. MUSCULOSKELETAL: Extremities without clubbing, cyanosis, or edema. No calf tenderness. Right paraspinal muscle tenderness with palpation in the area of around T3/T4. NEUROLOGICAL: Awake and alert. Motor and sensory grossly within normal limits. Normal speech. Pt update on day of discharge In the chair, family at bedside. Says he feels much better. Says she was able to eat, less abdominal pain. No n/v/d/c. No fever or chills. Feels comfortable to go home. EGD with gastritis, pain is better controlled, will stiop diabetes meds and have patient on insulin, patient knows how to senf inject insulin also his is a nurse and knows to administer insulin as well. Hospital Course 47 y/o male with a history of upper lipidemia, hypertension, and type 2 diabetes mellitus who presented to the emergency room and [place] complaining of epigastric pain and back pain since 04/02/2017. Patient with pancreatitis - medication related vs choledocholithiasis vs autoimmune GI consulted. HIDA negative MRCP negative. Had EGD Received IVF D5NS IVF hydration at 100 cc/hr, pain control and IV abx Hold oral diabetes medications. Accuchecks and ISS. Was discharged home on insulin . To follow up as OP with his PCP. EGD with gastritis, pain is better controlled, will stiop diabetes meds and have patient on insulin, patient knows how to senf inject insulin also his is a nurse and knows to administer insulin as well. Patient improved quicker than expected, was DC home in stable condition to follow up as OP with PCP and consultants. Pt Condition on Discharge: Stable Discharge Disposition: Discharge Home Discharge Time: > 30 minutes Discharge Instructions DIET: Follow Instructions for: Heart Healthy Diet, Diabetic Diet Activities you can perform: Regular-No Restrictions Follow up Referrals: Gastroenterology - 2 Weeks PCP Follow-up - 2-3 Days New Medications: Hydrocodone-Acetaminophen ([place]) 5-325 mg Tab 1 TAB PO Q6H PRN for PAIN, #10 TAB 0 Refills Insulin Aspart Inj (Novolog Inj) 1,000 Unit/10 Ml Vial 1-9 UNITS SQ ACHS for Blood Sugar Management, #10 ML 0 Refills Max dose at bedtime:( )units; sugars less than 70,(0)units; sugars 150-199,(1) unit; sugars 200-249,(3) units; sugars 250-299,(5) units; sugars 300-349,(7) units; sugars greater than 349,(9) units Insulin Syringe/U-100/31G X 5/16" 1 ml (Insulin Syringe/U-100/31G X 5/16" 1 ml) 31 Gauge X 5/16" Mis EA .ROUTE DIRECTED for Blood Sugar Management, #1 0 Refills Pantoprazole (Pantoprazole) 40 Mg Tab 40 MG PO DAILY for Reflux, #30 TAB 0 Refills Parenteral Therapy Supplies (Sharpsafety Sharps Contai) 1 Mis Mis EA .ROUTE DIRECTED, #1 0 Refills Dicyclomine (Dicyclomine) 20 Mg Tab 20 MG PO TID for abd cramps , #60 TAB Nicotine (Eq Nicotine Step 3) 7 Mg/24 Hour Dis 1 PATCH T-DERMAL DAILY for smoking cessation , #30 PATCH Continued Medications: Atorvastatin (Atorvastatin) 40 Mg Tab 40 MG PO HS for Cholesterol Management, #30 TAB 0 Refills Lisinopril (Lisinopril) 10 Mg Tab 10 MG PO DAILY, #30 TAB 0 Refills Discontinued Medications: Glipizide (Glipizide) 5 Mg Tab 5 MG PO BIDAC for Blood Sugar Management, #60 TAB 0 Refills Take 30 minutes before a meal Sitagliptin-Metformin (Janumet) 50-1,000 Mg Tab 1 TAB PO BID for Blood Sugar Management, #60 TAB 0 Refills Manjula Garcia MD Apr 07, 2017 10:27
[2017-04-07] MEDS ORDERED: PANT40TA3 PO (10:32)
[2017-04-07] MEDS ORDERED: NORC5TAB PO (10:32)
[2017-04-07] MEDS ORDERED: NICO1DIS8 T-DERMAL (10:32)
[2017-04-07 12:00] VITALS: BP 137/69; PULSE 84; RESP 18; TEMP 96.9; O2SAT 99
[2017-04-07 16:00] VITALS: BP 135/79; PULSE 85; RESP 18; TEMP 96.6; O2SAT 99
[2017-04-10 03:34] LABS: MITOCHONDRIAL ABS LESS THAN 20.0 U (<=20.0)
[2017-04-10 03:51] LABS: IGA SERUM 144 mg/dL (81-463)
[2017-04-10 13:52] LABS: ENDOMYSIAL AB TITER ND (<1:5); TISSUE TRANSGLUTAMINASE AB LESS THAN 1 U/mL (0-4)
== END 2017-04-07 11:46 | disposition home or self-care (01) | DRG 440 ==
LOC: NEDDLT 17:14 → N07A 17:35
PROVIDERS: ADMIT Hospitalist; ATTEND Hospitalist
PROC: 0DB78ZX Excision of Stomach, Pylorus, Via Natural or Artificial Opening Endoscopic, Diagnostic (ICD-10-PCS; 2017-04-06)
PROC: 0DB58ZX Excision of Esophagus, Via Natural or Artificial Opening Endoscopic, Diagnostic (ICD-10-PCS; principal; 2017-04-06 11:05)
DX: K85.90 Acute pancreatitis without necrosis or infection, unspecified (principal); I10 Essential (primary) hypertension; E11.9 Type 2 diabetes mellitus without complications; E78.5 Hyperlipidemia, unspecified; F17.220 Nicotine dependence, chewing tobacco, uncomplicated; K20.9 Esophagitis, unspecified; K29.70 Gastritis, unspecified, without bleeding; Z79.84 Long term (current) use of oral hypoglycemic drugs
CPT/HCPCS: 74177; 74181; 76377; 78226; 80053; 80076; 82390; 82728; 82784; 82948; 83010; 83516; 83520; 83540; 83615; 83690; 84478; 84484; 85025; 85610; 85730; 86038; 86140; 86255; 88305; 88312; 93005; 96365; 96375; A9537; J1170; J1815; J2405; J2543; J7030; J7042; Q9967